=== PATIENT | female | born 1940 | race Caucasian/White ===

== ENCOUNTER → 2024-05-10 | Emergency (ER) | payer MEDICARE, BC ==
[~2024-05-10] VITALS: Ht 170.2 cm; Wt 87.5 kg
[2024-05-10 20:13] VITALS: BP 141/66; TEMP 98.7; O2SAT 100
== END | disposition home or self-care (01) ==
LOC: ER 19:29
DX: S61.431A Puncture wound without foreign body of right hand, initial encounter (principal); I10 Essential (primary) hypertension; Z60.2 Problems related to living alone; W26.8XXA Contact with other sharp object(s), not elsewhere classified, initial encounter; Y93.89 Activity, other specified; Y92.89 Other specified places as the place of occurrence of the external cause; Y99.8 Other external cause status
CPT/HCPCS: 99283; 73130; A6403

== ENCOUNTER 2025-06-22 09:00 | Inpatient (IN) | payer MEDICARE, BC ==
[~2025-06-22] VITALS: Ht 175.3 cm; Wt 83.9 kg
[2025-06-22] MEDS ORDERED: ONDANSETRON HCL/PF 4 MG/2 ML VIAL ONE (09:19)
[2025-06-22] MEDS ORDERED: ACETAMINOPHEN ES 500 MG TABLET ONE (09:19)
[2025-06-22] MEDS ORDERED: ACETAMINOPHEN 325 MG TABLET ONE (09:22)
[2025-06-22 09:23] LABS: PLATELET COUNT (AUTO) 216 K/uL (150-450); RED BLOOD CELL COUNT(AUTO) 5.12 MIL/uL (4.0-5.2); RED CELL DISTRIBUTION WIDTH 14.3 % (11.5-15.0); WHITE BLOOD COUNT (AUTO) 5.3 K/uL (4.3-11.0)
[2025-06-22 09:28] LABS: CALCIUM, SERUM 9.3 mg/dL (8.5-10.1); CREATININE 0.8 mg/dL (0.6-1.3); SODIUM SERUM 137 mmol/L (136-145); UREA NITROGEN, BLOOD 10 mg/dL (7-18)
[2025-06-22] MEDS: ACETAMINOPHEN 325 MG TABLET PO ONE (09:34)
[2025-06-22] MEDS: IV NS 0.9% 1,000 ML BAG IV ONE (09:34)
[2025-06-22] MEDS: ONDANSETRON HCL/PF 4 MG/2 ML VIAL IVP ONE (09:34)
[2025-06-22 09:40] LABS: ASPARTATE AMINOTRANSFERASE 19 U/L (15-37); TOTAL PROTEIN, SERUM 7.2 g/dL (6.4-8.2)
[2025-06-22 10:06] LABS: APPEARANCE,URINE CLEAR (CLEAR); BLOOD, URINE Negative Ery/uL (NEGATIVE); LEUKOCYTE ESTERASE ,URINE Negative (NEGATIVE); UGLUCOSE Negative (NEGATIVE)
[2025-06-22 10:08] LABS: NITRITE, URINE NEGATIVE (NEGATIVE)
[2025-06-22] MEDS ORDERED: ATOR80TA PO (11:46)
[2025-06-22] MEDS ORDERED: CHOL100043 PO (11:46)
[2025-06-22] MEDS ORDERED: ASPI-1420 PO (11:46)
[2025-06-22] MEDS ORDERED: VENL150T PO (11:46)
[2025-06-22] MEDS ORDERED: AMLO-212 PO (11:46)
[2025-06-22] MEDS ORDERED: VALS1TAB6 PO (11:46)
[2025-06-22] MEDS ORDERED: TRAZ-252 PO (11:46)
[2025-06-22 11:55] VITALS: BP 129/52; TEMP 98.4; O2SAT 98
[2025-06-22] MEDS ORDERED: ACETAMINOPHEN 325 MG TABLET PO PRN (13:30)
[2025-06-22] MEDS ORDERED: ONDANSETRON HCL/PF 4 MG/2 ML VIAL IVP PRN (13:30)
[2025-06-22] MEDS ORDERED: Z GUARD REMEDY 4 OZ OINT TP PRN (13:30)
[2025-06-22] MEDS ORDERED: MAG HYDROX/AL HYDROX/SIMETH 30 ML UDC PO PRN (13:30)
[2025-06-22] MEDS ORDERED: MAGNESIUM HYDROXIDE 30 ML UDC PO PRN (13:30)
[2025-06-22] MEDS: IV NS 0.9% 1,000 ML IV PRN (14:01)
[2025-06-22] MEDS: ENOXAPARIN SODIUM 40 MG/0.4 ML DISP.SYRIN SQ SCH (14:15)
[2025-06-22 15:58] VITALS: BP 147/69; TEMP 98.1; O2SAT 94
[2025-06-22 20:00] VITALS: BP 158/74; TEMP 98.1; O2SAT 96
[2025-06-22] MEDS: TRAZODONE 50 MG TABLET PO SCH (21:09)
[2025-06-22] MEDS: ATORVASTATIN 40 MG TABLET PO SCH (21:09)
[2025-06-23 06:32] LABS: PLATELET COUNT (AUTO) 191 K/uL (150-450); RED BLOOD CELL COUNT(AUTO) 4.74 MIL/uL (4.0-5.2); RED CELL DISTRIBUTION WIDTH 14.0 % (11.5-15.0); WHITE BLOOD COUNT (AUTO) 5.6 K/uL (4.3-11.0)
[2025-06-23 07:04] LABS: CALCIUM, SERUM 8.8 mg/dL (8.5-10.1); CREATININE 0.8 mg/dL (0.6-1.3); PHOSPHORUS 3.0 mg/dL (2.5-4.9); SODIUM SERUM 143.0 mmol/L (136-145); UREA NITROGEN, BLOOD 6.0 mg/dL (7-18)
[2025-06-23 07:30] VITALS: BP 121/63; TEMP 97.7; O2SAT 95
[2025-06-23] MEDS: VENLAFAXINE XR 150 MG CAP.SR.24H PO SCH (08:23)
[2025-06-23] MEDS: AMLODIPINE BESYLATE 5 MG TABLET PO SCH (10:16)
[2025-06-23] MEDS: ASPIRIN EC 81 MG TABLET.DR PO SCH (10:16)
[2025-06-23 16:00] VITALS: BP 153/67; TEMP 98.1; O2SAT 95
[2025-06-23 20:00] VITALS: BP 176/66; TEMP 98.1; O2SAT 97
[2025-06-23 21:50] VITALS: BP 159/70; TEMP 98.1; O2SAT 97
[2025-06-24 06:56] LABS: PLATELET COUNT (AUTO) 188 K/uL (150-450); RED BLOOD CELL COUNT(AUTO) 4.82 MIL/uL (4.0-5.2); RED CELL DISTRIBUTION WIDTH 14.4 % (11.5-15.0); WHITE BLOOD COUNT (AUTO) 5.8 K/uL (4.3-11.0)
[2025-06-24 07:08] LABS: CALCIUM, SERUM 8.8 mg/dL (8.5-10.1); CREATININE 0.7 mg/dL (0.6-1.3); SODIUM SERUM 142.0 mmol/L (136-145); UREA NITROGEN, BLOOD 9.0 mg/dL (7-18)
[2025-06-24 07:30] VITALS: BP 153/62; TEMP 97.7; O2SAT 94
[2025-06-24 08:15] VITALS: BP 153/62
== END 2025-06-24 12:31 | DRG 392 ==
LOC: ER 09:05 → TELE 11:07 → MED 21:32
PROVIDERS: ADMIT Internal Medicine; ATTEND Internal Medicine
DX: A08.4 Viral intestinal infection, unspecified (principal); E86.0 Dehydration; Z86.73 Personal history of transient ischemic attack (TIA), and cerebral infarction without residual deficits; Z66 Do not resuscitate; I10 Essential (primary) hypertension; E78.5 Hyperlipidemia, unspecified; Z79.82 Long term (current) use of aspirin; Z79.899 Other long term (current) drug therapy
CPT/HCPCS: 36415; 70450-TC; 71045-TC; 80048-TC; 80076-TC; 82962-TC; 83690-TC; 83735-TC; 84100-TC; 84484-TC; 85025-TC; 87081-TC; 97110-TC; 97116-TC; 97530-TC; A4223; G0378; J1650; J2405; J7030; J7040